=== PATIENT | female | born 1940 | race Caucasian/White ===

== ENCOUNTER 2017-05-29 13:21 | Inpatient (IN) | payer MEDICARE, BC ==
[~2017-05-29] VITALS: Ht 152.4 cm; Wt 69.6 kg
[2017-05-29] VITALS (47 sets, daily range): BP systolic 118–133; BP diastolic 52–70; PULSE 65–73; TEMP 97.9–99; O2SAT 81–100
[~2017-05-29 13:21] MED LIST: ALEVE 220MG220 MG PO; AMBIEN 10MG10 MG PO; BUMEX1 MG PO; CALCIUM CITRAT200 MG PO; CRESTOR5 MG PO; LEXAPRO 10MG10 MG PO; LIPITOR 10MG10 MG PO; MULTIVITAMIN FO1 CAP PO; MVI; NORCO 325 MG-7.1 TAB PO; POTASSIUM CL 220 MEQ PO; PREDNISONE10 MG PO; PRILOSEC 20MG20 MG PO
[2017-05-29] MEDS ORDERED: ARIMIDEX1 MG PO (13:36)
[2017-05-29] MEDS ORDERED: ARICEPT10 MG PO (13:36)
[2017-05-29] MEDS ORDERED: LEVBID0.375 MG PO (13:37)
[2017-05-29] MEDS ORDERED: ASPIRIN 81M81 MG/TA2 PO (13:37)
[2017-05-29 14:36] LABS: BASO # 0.1 (0.0-0.2); BASO % 0.6 % (0.0-2.0); EOS # 0.1 (0.0-0.7); GRAN # 6.4 (1.4-6.5); GRAN % 64.5 % (42.2-75.2); HEMATOCRIT 40.3 % (37.0-47.0); HEMOGLOBIN 13.5 g/dl (12.5-16.0); LYMPH # 2.6 (1.2-3.4); LYMPH % 25.9 % (20.0-51.0); MEAN CELL VOLUME 87 fl (80.0-100.0); MEAN CORPUSCULAR HEMOGLOBIN 29 pg (27.0-31.0); MEAN CORPUSCULAR HGB CONC 34 g/dl (33.0-37.0); MEAN PLATELET VOLUME 9.7 fl (7.4-10.4); MONO # 0.7 (0.1-0.6); MONO % 7.5 % (1.7-9.3); PLATELET COUNT 236 K/mm3 (130-400); RED BLOOD COUNT 4.64 M/mm3 (4.10-5.30); REDCELL DISTRIBUTION WIDTH-CV 13.9 % (11.5-14.5); WHITE BLOOD COUNT 9.9 K/mm3 (4.8-10.8)
[2017-05-29 14:43] LABS: ANION GAP 11 mmol/L (7-16); BLOOD UREA NITROGEN 13 mg/dL (7-17); CALCIUM 9.5 mg/dL (8.4-10.2); CARBON DIOXIDE 25 mmol/L (22-30); CHLORIDE 104 mmol/L (98-107); CREATININE, serum 0.58 mg/dL (0.52-1.25); GLUCOSE 97 mg/dL (74-106); POTASSIUM 4.2 mmol/L (3.4-5.0); SODIUM 139 mmol/L (137-145)
[2017-05-29 14:58] LABS: TROPONIN-I < 0.012 ng/mL (0.000-0.034)
[2017-05-29 15:14] LABS: PH 5 (5-8); SQUAMOUS EPITHELIAL 0-2 /hpf; URINE APPEARANCE Hazy; URINE BACTERIA None Seen /hpf; URINE BILIRUBIN Negative (NEGATIVE); URINE BLOOD Negative (NEGATIVE); URINE COLOR Yellow; URINE GLUCOSE Negative (NEGATIVE); URINE KETONE Trace (NEGATIVE); URINE UROBILINOGEN Negative (NEGATIVE)
[2017-05-29] MEDS ORDERED: ULTRAM 50MG TAB50 MG PO (15:42)
[2017-05-29] MEDS ORDERED: EYE PROMISE (20:19)
[2017-05-30] VITALS (7 sets, daily range): BP systolic 136–160; BP diastolic 62–105; PULSE 56–93; TEMP 97–98.3
[2017-05-30 06:03] LABS: CALCIUM 8.7 mg/dL (8.4-10.2); CREATININE, serum 0.47 mg/dL (0.52-1.25); POTASSIUM 3.5 mmol/L (3.4-5.0)
[2017-05-31 03:51] VITALS: BP 167/89; PULSE 71; TEMP 97.7
[2017-05-31 07:46] VITALS: BP 150/73; PULSE 89; TEMP 97.4
[2017-05-31 11:15] VITALS: BP 140/46; PULSE 81; TEMP 98.6
[2017-05-31 15:41] VITALS: BP 151/78; PULSE 100; TEMP 97.9
[2017-06-01 00:15] VITALS: BP 152/99; PULSE 87; TEMP 98.6
[2017-06-01 04:15] VITALS: BP 161/82; PULSE 70; TEMP 97.7
[2017-06-01 06:34] LABS: BASO # 0.1 (0.0-0.2); BASO % 0.8 % (0.0-2.0); EOS # 0.3 (0.0-0.7); EOS % 3.1 % (0-4.0); GRAN # 6.8 (1.4-6.5); GRAN % 64.8 % (42.2-75.2); LYMPH # 2.4 (1.2-3.4); LYMPH % 22.7 % (20.0-51.0); MEAN CELL VOLUME 88 fl (80.0-100.0); MEAN CORPUSCULAR HGB CONC 33 g/dl (33.0-37.0); MONO # 0.9 (0.1-0.6); MONO % 8.2 % (1.7-9.3); PLATELET COUNT 207 K/mm3 (130-400); RED BLOOD COUNT 3.61 M/mm3 (4.10-5.30); WHITE BLOOD COUNT 10.4 K/mm3 (4.8-10.8)
[2017-06-01 06:35] LABS: HEMATOCRIT 31.7 % (37.0-47.0); HEMOGLOBIN 10.6 g/dl (12.5-16.0); MEAN CORPUSCULAR HEMOGLOBIN 29 pg (27.0-31.0)
[2017-06-01 06:46] LABS: CALCIUM 8.4 mg/dL (8.4-10.2); CREATININE, serum 0.46 mg/dL (0.52-1.25); POTASSIUM 3.3 mmol/L (3.4-5.0)
[2017-06-01 08:30] VITALS: BP 177/65; PULSE 70; TEMP 97.7
[2017-06-01 09:21] LABS: MAGNESIUM 1.9 mg/dL (1.6-2.3)
[2017-06-01] MEDS ORDERED: BACTRIM DS 8001 TAB PO (10:49)
[2017-06-01] MEDS ORDERED: TOPROL XL 25MG25 MG PO (10:51)
[2017-06-01 11:36] VITALS: BP 177/65; PULSE 70; TEMP 97.7
== END 2017-06-01 13:10 | disposition home or self-care (01) | DRG 690 ==
LOC: COL.ER 13:21 → MEDICAL 17:38 → ICU 17:38 → MEDICAL 05-30 10:07 → ICU 05-30 10:07 → MEDICAL 06-01 13:10
PROVIDERS: Emergency Medicine; Nurse Practitioner Family; Physician Assistant
DX: N39.0 Urinary tract infection, site not specified (principal); M25.552 Pain in left hip; E78.5 Hyperlipidemia, unspecified; F03.90 Unspecified dementia, unspecified severity, without behavioral disturbance, psychotic disturbance, mood disturbance, and anxiety; F17.210 Nicotine dependence, cigarettes, uncomplicated; I10 Essential (primary) hypertension; D64.9 Anemia, unspecified; R25.1 Tremor, unspecified; E87.6 Hypokalemia; Z91.81 History of falling; Z85.3 Personal history of malignant neoplasm of breast
CPT/HCPCS: 99232-AI; 99233-AI; 99239; G8987-GO; G8988-GO; J0696; J1170; J7030

== ENCOUNTER → 2017-06-04 | Outpatient (REF) ==
[~2017-06-04] MED LIST changes: +ARICEPT10 MG PO; +ARIMIDEX1 MG PO; +ASPIRIN 81M81 MG/TA2 PO; +BACTRIM DS 8001 TAB PO; +EYE PROMISE; +LEVBID0.375 MG PO; +TOPROL XL 25MG25 MG PO; +ULTRAM 50MG TAB50 MG PO
[2017-06-04 20:36] LABS: BASO % 0.2 % (0.0-2.0); EOS # 0.9 (0.0-0.7); EOS % 9.7 % (0-4.0); GRAN # 6.3 (1.4-6.5); GRAN % 67.3 % (42.2-75.2); HEMOGLOBIN 11.7 g/dl (12.5-16.0); LYMPH # 1.5 (1.2-3.4); LYMPH % 15.5 % (20.0-51.0); MEAN CELL VOLUME 87 fl (80.0-100.0); MEAN CORPUSCULAR HEMOGLOBIN 29 pg (27.0-31.0); MEAN CORPUSCULAR HGB CONC 33 g/dl (33.0-37.0); MEAN PLATELET VOLUME 11.6 fl (7.4-10.4); MONO # 0.6 (0.1-0.6); MONO % 6.5 % (1.7-9.3); PLATELET COUNT 234 K/mm3 (130-400); RED BLOOD COUNT 4.01 M/mm3 (4.10-5.30); REDCELL DISTRIBUTION WIDTH-CV 15.1 % (11.5-14.5); WHITE BLOOD COUNT 9.4 K/mm3 (4.8-10.8)
[2017-06-04 21:03] LABS: CALCIUM 8.8 mg/dL (8.4-10.2); CREATININE, serum 0.55 mg/dL (0.52-1.25); MAGNESIUM 2.1 mg/dL (1.6-2.3); POTASSIUM 3.8 mmol/L (3.4-5.0)
== END ==
LOC: ZLAB.STJ 20:31
PROVIDERS: Family Medicine
DX: Z01.89 Encounter for other specified special examinations (principal)

== ENCOUNTER 2017-09-05 18:32 | Emergency (ER) | payer MEDICARE, BC ==
[~2017-09-05] VITALS: Ht 157.5 cm; Wt 68.2 kg
[2017-09-05 18:33] VITALS: BP 171/66; TEMP 97.6
[2017-09-05 19:03] LABS: BASO # 0.1 (0.0-0.2); EOS # 0.3 (0.0-0.7); EOS % 2.5 % (0-4.0); GRAN # 6.1 (1.4-6.5); GRAN % 59.3 % (42.2-75.2); HEMATOCRIT 38.5 % (37.0-47.0); HEMOGLOBIN 12.1 g/dl (12.5-16.0); LYMPH % 28.9 % (20.0-51.0); MEAN CELL VOLUME 86 fl (80.0-100.0); MEAN CORPUSCULAR HEMOGLOBIN 27 pg (27.0-31.0); MEAN CORPUSCULAR HGB CONC 31 g/dl (33.0-37.0); MONO # 0.8 (0.1-0.6); MONO % 7.8 % (1.7-9.3); PLATELET COUNT 301 K/mm3 (130-400); WHITE BLOOD COUNT 10.2 K/mm3 (4.8-10.8)
[2017-09-05 19:07] LABS: INR 1.1 (0.8-3.0); PROTHROMBIN TIME 11.7 SECONDS (9.7-12.8)
[2017-09-05 19:10] LABS: PARTIAL THROMBOPLASTIN TIME 29.3 SECONDS (26.0-37.0)
[2017-09-05 19:12] LABS: ADJUSTED CALCIUM 9.8 mg/dL (8.4-10.2); ALANINE AMINOTRANSFERASE 24 U/L (9-52); ALBUMIN 3.3 gm/dL (3.5-5.0); ALKALINE PHOSPHATASE 84 U/L (50-136); ANION GAP 7 mmol/L (7-16); BILIRUBIN,TOTAL 0.6 mg/dL (0.0-1.0); BLOOD UREA NITROGEN 8 mg/dL (7-17); CALCIUM 9.2 mg/dL (8.4-10.2); CARBON DIOXIDE 27 mmol/L (22-30); CHLORIDE 106 mmol/L (98-107); CREATININE, serum 0.56 mg/dL (0.52-1.25); GLUCOSE 83 mg/dL (74-106); POTASSIUM 3.5 mmol/L (3.4-5.0); SODIUM 140 mmol/L (137-145); TOTAL PROTEIN 6.3 gm/dL (6.4-8.2)
[2017-09-05 19:24] LABS: TROPONIN-I < 0.012 ng/mL (0.000-0.034)
[2017-09-05] MEDS ORDERED: ARIMIDEX1 MG PO (19:48)
[2017-09-05] MEDS ORDERED: TOPROL XL 50MG50 MG PO (19:48)
[2017-09-05] MEDS ORDERED: ARIMIDEX1 MG (19:48)
[2017-09-05] MEDS ORDERED: ARICEPT10 MG PO (19:49)
[2017-09-05] MEDS ORDERED: LIPITOR20 MG PO (19:49)
[2017-09-05] MEDS ORDERED: ASPIRIN 81M81 MG/TA2 PO (19:50)
[2017-09-05] MEDS ORDERED: LEXAPRO 10MG10 MG PO (19:51)
[2017-09-05] MEDS ORDERED: NYAMYC100000 U/G TP (19:51)
[2017-09-05] MEDS ORDERED: ALMACONE 360 M360 ML PO (19:51)
[2017-09-05] MEDS ORDERED: IMODIUM 2MG CAPS2 MG PO (19:52)
[2017-09-05] MEDS ORDERED: TYLENOL 325MG325 MG PO (19:52)
[2017-09-05] MEDS ORDERED: MASON NATURAL2000 IU (19:53)
[2017-09-05] MEDS ORDERED: ALEVE 220MG220 MG PO (19:53)
[2017-09-05 20:09] LABS: COLLECTION METHOD CLEAN CATCH
[2017-09-05 20:32] LABS: MUCOUS Present /lpf; PH 5 (5-8); SQUAMOUS EPITHELIAL 0-2 /hpf; URINE APPEARANCE Cloudy; URINE BACTERIA None Seen /hpf; URINE BILIRUBIN Negative (NEGATIVE); URINE BLOOD 3+ (NEGATIVE); URINE COLOR Yellow; URINE GLUCOSE Negative (NEGATIVE); URINE KETONE Negative (NEGATIVE); URINE LEUKOCYTE ESTERASE Negative (NEGATIVE); URINE PROTEIN(semi-quant) 1+ (NEGATIVE); URINE RBC >50 /hpf; URINE UROBILINOGEN >=4.0 mg/dL (NEGATIVE)
[2017-09-05 20:46] VITALS: PULSE 66
== END 2017-09-05 21:09 | disposition home or self-care (01) ==
LOC: COL.ER 18:32
PROVIDERS: Family Medicine
DX: S70.00XA Contusion of unspecified hip, initial encounter (principal); I10 Essential (primary) hypertension; F03.90 Unspecified dementia, unspecified severity, without behavioral disturbance, psychotic disturbance, mood disturbance, and anxiety; Z79.82 Long term (current) use of aspirin; W19.XXXA Unspecified fall, initial encounter

== ENCOUNTER 2018-04-16 20:03 | Emergency (ER) | payer MEDICARE, BC ==
[~2018-04-16] VITALS: Ht 157.5 cm; Wt 63.6 kg
[~2018-04-16 20:03] MED LIST changes: +ALMACONE 360 M360 ML PO; +ARIMIDEX1 MG; +IMODIUM 2MG CAPS2 MG PO; +LIPITOR20 MG PO; +MASON NATURAL2000 IU; +NYAMYC100000 U/G TP; +TOPROL XL 50MG50 MG PO; +TYLENOL 325MG325 MG PO
[2018-04-16 20:06] VITALS: TEMP 96.8
[2018-04-16] MEDS ORDERED: KENALOG 60 ML60 M1 TP (20:26)
[2018-04-16 22:10] VITALS: BP 156/65; PULSE 58
== END 2018-04-16 21:30 | disposition home or self-care (01) ==
LOC: COL.ER 20:03
DX: S00.83XA Contusion of other part of head, initial encounter (principal); S80.01XA Contusion of right knee, initial encounter; I10 Essential (primary) hypertension; E78.5 Hyperlipidemia, unspecified; F03.90 Unspecified dementia, unspecified severity, without behavioral disturbance, psychotic disturbance, mood disturbance, and anxiety; Z87.891 Personal history of nicotine dependence; Z79.82 Long term (current) use of aspirin; W01.0XXA Fall on same level from slipping, tripping and stumbling without subsequent striking against object, initial encounter; Y92.129 Unspecified place in nursing home as the place of occurrence of the external cause

== ENCOUNTER 2018-06-10 18:32 | Emergency (ER) | payer MEDICARE, BC ==
[~2018-06-10] VITALS: Ht 157.5 cm; Wt 65.9 kg
[2018-06-10 18:32] VITALS: TEMP 97.9
[~2018-06-10 18:32] MED LIST changes: +KENALOG 60 ML60 M1 TP
[2018-06-10 19:41] VITALS: BP 143/89; PULSE 67
== END 2018-06-10 19:42 | disposition home or self-care (01) ==
LOC: COL.ER 18:32
DX: S60.221A Contusion of right hand, initial encounter (principal); I10 Essential (primary) hypertension; F03.90 Unspecified dementia, unspecified severity, without behavioral disturbance, psychotic disturbance, mood disturbance, and anxiety; Z79.82 Long term (current) use of aspirin; W18.30XA Fall on same level, unspecified, initial encounter; Y92.129 Unspecified place in nursing home as the place of occurrence of the external cause

== ENCOUNTER → 2018-10-22 | Outpatient (CLI) | payer MEDICARE, BC | LOC: MC.RAD 13:33 | DX: Z12.31 Encounter for screening mammogram for malignant neoplasm of breast (principal); Z85.3 Personal history of malignant neoplasm of breast ==

== ENCOUNTER 2019-01-15 10:27 | Emergency (ER) | payer MEDICARE, BC ==
[2019-01-15 10:30] VITALS: TEMP 97.9
[2019-01-15 10:44] LABS: BASO % 0.5 % (0.0-2.0); EOS # 0.1 (0.0-0.7); EOS % 1.6 % (0-4.0); GRAN # 6.2 (1.4-6.5); GRAN % 70.6 % (42.2-75.2); HEMOGLOBIN 16.2 g/dl (12.5-16.0); LYMPH # 1.9 (1.2-3.4); LYMPH % 21.1 % (20.0-51.0); MEAN CELL VOLUME 89 fl (80.0-100.0); MEAN CORPUSCULAR HEMOGLOBIN 29 pg (27.0-31.0); MEAN CORPUSCULAR HGB CONC 33 g/dl (33.0-37.0); MEAN PLATELET VOLUME 9.6 fl (7.4-10.4); MONO # 0.5 (0.1-0.6); MONO % 5.7 % (1.7-9.3); PLATELET COUNT 234 K/mm3 (130-400); RED BLOOD COUNT 5.51 M/mm3 (4.10-5.30); REDCELL DISTRIBUTION WIDTH-CV 13.4 % (11.5-14.5)
[2019-01-15 10:52] LABS: BILIRUBIN,TOTAL 1.4 mg/dL (0.0-1.0); CALCIUM 9.6 mg/dL (8.4-10.2); CREATININE, serum 0.77 mg/dL (0.52-1.25); POTASSIUM 3.7 mmol/L (3.4-5.0); TOTAL PROTEIN 7.2 gm/dL (6.4-8.2)
[2019-01-15 12:10] VITALS: BP 106/74; PULSE 67
== END 2019-01-15 12:10 | disposition home or self-care (01) ==
LOC: COL.ER 10:27
PROVIDERS: Emergency Medicine
DX: R19.7 Diarrhea, unspecified (principal); E86.0 Dehydration; Z79.82 Long term (current) use of aspirin; Z90.49 Acquired absence of other specified parts of digestive tract
CPT/HCPCS: J2405; J7030